=== PATIENT | male | born 1955 | race Caucasian/White ===

== ENCOUNTER 2020-01-05 11:38 | Observation (INO) | payer BC ==
[~2020-01-05] VITALS: Ht 177.8 cm; Wt 74.1 kg
[2020-01-05 12:06] LABS: BASO # 0.1 10^3/uL (0.0-0.2); BASO % 0.8 % (0.0-1.0); EOS # 0.3 10^3/uL (0.0-0.5); EOS % 4.6 % (0.0-3.0); HEMATOCRIT 46.6 % (42.0-52.0); HEMOGLOBIN 15.6 g/dl (13.5-17.5); LYMPH # 2.4 10^3/uL (1.5-5.0); LYMPH % 33.7 % (24.0-44.0); MEAN CORPUSCULAR HEMOGLOBIN 31.4 pg (27.0-33.0); MEAN CORPUSCULAR HGB CONC 33.5 g/dl (32.0-36.5); MEAN CORPUSCULAR VOLUME 93.8 fl (80.0-96.0); MONO # 0.7 10^3/uL (0.0-0.8); NEUTROPHILS # 3.6 10^3/uL (1.5-8.5); NEUTROPHILS % 50.5 % (36.0-66.0); PLATELET COUNT, AUTOMATED 226 10^3/uL (150-450); RED BLOOD COUNT 4.97 10^6/uL (4.30-6.10); WHITE BLOOD COUNT 7.1 10^3/uL (4.0-10.0)
--- NOTE | 2020-01-05 12:11 | REP ---
Head CT without contrast: History: Altered mental status. Comparison study: No comparison study. CT findings: Bone window settings demonstrate an intact bony calvarium. There is no evidence of skull fracture or incidental bony calvarial lesion. The visualized paranasal sinuses appear clear. No intraorbital abnormality is seen. On soft tissue window setting images; the lateral, third, and fourth ventricles are normal in size and position. Vega-white differentiation pattern is normal above and below the tentorium. There are is no evidence of intracranial hemorrhage. No mass, edema, infarction, or midline shift is seen. No extra-axial fluid collection is appreciated. Impression: Negative noncontrast head CT. Electronically Signed by Janes Silva MD 01/05/2020 12:03 P
--- NOTE | 2020-01-05 12:15 | REP ---
CHEST, SINGLE VIEW: Single view of the chest is performed. There is no acute infiltrate. However there is a nodular opacity projecting in the left lung base 2.2 cm in diameter. Heart is normal in size. Mediastinal silhouette is unremarkable. IMPRESSION: No infiltrate is seen. Left lung nodule 2.2 cm in diameter. Electronically Signed by Jairo Vega MD 01/05/2020 03:58 P
[2020-01-05 12:34] LABS: ALBUMIN 4.3 GM/DL (3.2-5.2); ALT/SGPT 21 U/L (12-78); BILIRUBIN,DIRECT 0.1 MG/DL (0.0-0.2); BILIRUBIN,TOTAL 0.4 MG/DL (0.2-1.0); BLOOD UREA NITROGEN 15 MG/DL (7-18); CALCIUM LEVEL 8.6 MG/DL (8.8-10.2); CARBON DIOXIDE LEVEL 29 MEQ/L (21-32); CHLORIDE LEVEL 105 MEQ/L (98-107); CK-MB VALUE MASS < 1.0 NG/ML (<3.6); CPK CREATINE PHOSPHOKINASE 139 U/L (39-308); CREATININE FOR GFR 1.03 MG/DL (0.70-1.30); ETHYL ALCOHOL (ETHANOL) < 0.003 % (0.000-0.010); GLOMERULAR FILTRATION RATE > 60.0 (>49); GLUCOSE, FASTING 105 MG/DL (70-100); MB/CK RELATIVE INDEX 0.72 (< OR =4); POTASSIUM SERUM 4.3 MEQ/L (3.5-5.1); SODIUM LEVEL 139 MEQ/L (136-145); THYROID STIMULATING HORMONE 0.974 uIU/ML (0.358-3.740); TOTAL PROTEIN 7.3 GM/DL (6.4-8.2); TROPONIN I < 0.02 NG/ML (< 0.10)
[2020-01-05] MEDS ORDERED: TADA5TAB PO (12:40)
[2020-01-05] MEDS ORDERED: TAMS1CAP17 PO (12:40)
[2020-01-05] MEDS ORDERED: ZOLP10TA2 PO (12:40)
[2020-01-05] MEDS ORDERED: ECOT81TA5 PO (12:46)
[2020-01-05] MEDS ORDERED: PRAV10TA4 PO (13:02)
[2020-01-05] MEDS ORDERED: MOM 30ML SUSPENSION UDC PO PRN (13:45)
[2020-01-05] MEDS ORDERED: ACETAMINOPHEN TAB 650MG DOSE (2X325MG) PO PRN (13:45)
[2020-01-05] MEDS ORDERED: MAALOX 30 ML SUSP *UDC PO PRN (13:45)
--- NOTE | 2020-01-05 13:49 | HPEPDOC ---
General Date of Admission 01/05/20 Date of Service: Jan 05, 2020 Chief Complaint The patient is a 64-year-old male admitted with a reason for visit of Neuro Sx. Source: Patient Exam Limitations: No limitations Timing/Duration: Other (since this morning) Severity: Moderate Associated Symptoms: Other (, confusion, loss of memory) History of Present Illness This is 64 years old white male with past medical history of hyperlipidemia, has not taken his statins/anti-hyperlipidemic meds since last 1 month. He came in with chief complaints of sudden onset of confusion which started at 10 AM and lasted for about 2 hours, confusion, was associated with partial loss of memory. He could remember some stuff, but he did not remember other like recent events. No seizures. No are no postictal state. No headache. No weakness. Sensory or motor. No weakness of cranial nerves, and was brought to ER where initially he was found, oriented 1 but later he became alert, oriented 3 with no symptoms. Home Medications Scheduled Aspirin (Ecotrin) 81 Mg Tablet.dr, 81 MG PO DAILY, (Reported) Pravastatin Sodium (Pravastatin Sodium) 10 Mg Tablet, 10 MG PO DAILY, (Reported) Tamsulosin Hcl (Tamsulosin HCl) 0.4 Mg Capsule, 0.4 MG PO DAILY, (Reported) Zolpidem Tartrate (Zolpidem Tartrate) 10 Mg Tablet, 10 MG PO QHS, (Reported) Scheduled PRN Tadalafil (Tadalafil) 5 Mg Tablet, 5 MG PO DAILY PRN for ERECTILE DYSFUNCTION, (Reported) Allergies Coded Allergies: No Known Allergies (Unverified , 01/05/20) Past Medical History Medical History Hyperlipidemia, BPH Family History Significant Family History: No pertinent family hx Social History * Smoker: Denies Alcohol: other (. Drinks about 2 drinks per day) Drugs: denies A-FIB/CHADSVASC A-FIB History Current/History of A-Fib/PAF?: No Review of Systems Constitutional: Denies: Chills, Fever, Malaise, Night Sweats, Weakness, Fatigue, Weight Loss, Lethargy, Other Eyes: Denies: Pain, Vision change, Conjunctivae inflammation, Eyelid inflammation, Redness, Other ENT: Denies: Head Aches, Ear Pain, Dysphagia, Sinus Congestion, Post Nasal Drip, Sore Throat, Epistaxis, Other Symptoms Skin: Denies: Rash, Lesions, Jaundice, Bruising, Itching, Dry, Breakdown, Nail Changes, Other Pulmonary: Denies: Dyspnea, Cough, Pleuritic Chest Pain, Other Symptoms Cardiovascular: Denies: Chest Pain, Palpitations, Orthopnea, Paroxysmal Noc. Dyspnea, Edema, Lt Headedness, Other Symptoms Gastrointestinal: Denies: Nausea, Vomiting, Abdominal Pain, Diarrhea, Constipation, Melena, Hematochezia, Other Symptoms Genitourinary: Denies: Dysuria, Frequency, Incontinence, Hematuria, Retention, Other Symptoms Hematologic: Denies: Bruising, Bleeding Excessively, Petecchia, Purpura, Enlarged Lymph Nodes, Other Hematologic Endocrine: Denies: Polydipsia, Polyphagia, Polyuria, Heat Intolerance, Cold Intolerance, Other Endocrine Sx Musculoskeletal: Denies: Neck Pain, Back Pain, Shoulder Pain, Arm Pain, Hand Pain, Leg Pain, Foot Pain, Joint Pain, Muscle Pain, Spasms, Other Symptoms Neurological: Reports: Other Symptoms (, confusion with loss of memory) Psych: Denies: Mood Normal, Anxiety, Depression, Memory Issues, Thoughts of Self Harm, Anger, Thoughts of Harming Other, Other Psych Physical Examination General Exam: Positive: Alert, Cooperative Eye Exam: Positive: PERRLA, Conjunctiva & lids normal ENT Exam: Positive: Atraumatic Neck Exam: Positive: Supple Chest Exam: Positive: Clear to auscultation, Normal air movement Heart Exam: Positive: Rate Normal, Normal S1, Normal S2 Abdomen Exam: Positive: Normal bowel sounds, Soft, Tenderness Extremity Exam: Positive: Normal pulses Skin Exam: Positive: Nl turgor and temperature Neuro Exam: Positive: Strength at 5/5 X4 ext Psych Exam: Positive: Mental status NL, Oriented x 3 Vital Signs Vital Signs Date Time Temp Pulse Resp B/P (MAP) Pulse Ox O2 Delivery O2 Flow Rate FiO2 01/05/20 11:54 01/05/20 11:38 96.6 68 18 99 Room Air Laboratory Data Labs 24H Laboratory Tests 2 01/05/20 11:41: Immature Granulocyte % (Auto) 0.4, Neutrophils (%) (Auto) 50.5, Lymphocytes (%) (Auto) 33.7, Monocytes (%) (Auto) 10.0H, Eosinophils (%) (Auto) 4.6H, Basophils (%) (Auto) 0.8, Neutrophils # (Auto) 3.6, Lymphocytes # (Auto) 2.4, Monocytes # (Auto) 0.7, Eosinophils # (Auto) 0.3, Basophils # (Auto) 0.1, Nucleated Red Blood Cells % (auto) 0.0, Anion Gap 5L, Glomerular Filtration Rate > 60.0, Calcium Level 8.6L, Total Bilirubin 0.4, Direct Bilirubin 0.1, Aspartate Amino Transf (AST/SGOT) 21, Alanine Aminotransferase (ALT/SGPT) 21, Alkaline P hosphatase 67, Ammonia 17, Total Creatine Kinase 139, Creatine Kinase MB < 1.0, Creatine Kinase MB Relative Index 0.72, Troponin I < 0.02, Total Protein 7.3, Albumin 4.3, Albumin/Globulin Ratio 1.43, Thyroid Stimulating Hormone (TSH) 0.974, Ethyl Alcohol Level < 0.003 01/05/20 12:10: Bedside Glucose (Misc Panel) 100 CBC/BMP Laboratory Tests 01/05/20 11:41 Problems (1) TGA (transient global amnesia) Status: Acute Problem Text: 64 years old white male with past medical history of hyperli pidemia, on no meds at present, double of sudden onset of global amnesia for about 2 hours. Patient is presently asymptomatic CT of the head is negative. Chest x-ray shows left lung. The nodule 2.2 cm in diameter CBC, CMP within normal range , Alcohol less than 0.003 Urine toxicity screen pending Admit patient [facility] floor with telemetry Saline lock Will start him on higher dose of aspirin 325 mg by mouth daily starting dose today Will start him on Crestor 5 mg by mouth daily as a starting dose MRI of the brain without contrast Bilateral carotid Doppler Echocardiogram LDL and hemoglobin A1c Neurology consult: Dr. Ranulfo Kim discussed. He will see patient later Will continue home meds, once available DVT prophylaxis with Lovenox Diet regular Activity as tolerated (2) Hyperlipidemia Status: Chronic Problem Text: As per patient, he is on no medications since last 1 month Patient is from [place]. He does not have a PCP has been started on Crestor 5 mg by mouth daily Plan / VTE VTE Prophylaxis Ordered?: Yes SHAILA CAVANAUGH MD Jan 05, 2020 13:49
[2020-01-05] MEDS ORDERED: ASPIRIN 81 MG ENTERIC TAB PO SCH (14:00)
[2020-01-05 14:30] LABS: CHOLESTEROL LEVEL 167 MG/DL (<200); HDL CHOLESTEROL 41 MG/DL (>40); LDL CHOLESTEROL 102 MG/DL (<100); TRIGLYCERIDES LEVEL 120 MG/DL (<150)
[2020-01-05 14:38] LABS: HEMOGLOBIN A1c 5.8 %
[2020-01-05 14:40] LABS: AMPHETAMINES LEVEL URINE NEGATIVE (NEGATIVE); BARBITURATES URINE NEGATIVE (NEGATIVE); BENZODIAZEPINES URINE NEGATIVE (NEGATIVE); CANNABINOIDS URINE NEGATIVE (NEGATIVE); COCAINE METABOLITE URINE NEGATIVE (NEGATIVE); METHADONE URINE NEGATIVE (NEGATIVE); OPIATES URINE POSITIVE (NEGATIVE); PHENCYCLIDINE URINE NEGATIVE (NEGATIVE)
--- NOTE | 2020-01-05 15:40 | REP ---
Duplex carotid sonography: History: TIA. Findings: Antegrade flow was observed in both vertebral arteries. Right carotid: The right common carotid artery shows minimal soft plaquing. There is soft plaquing in the bulb and proximal ICA on two-dimensional scanning on the right side. Color flow and spectral Doppler interrogation are unremarkable. Velocity chart right carotid: CCA PSV 95 cm/s ICA PSV 58 cm/s ICA EDV 19 cm/s ECA PSV 70 cm/s Right ICA/CCA ratio normal 0.6. Impression: Less than 50% category narrowing in the right ICA by Doppler velocity criteria. Left carotid: The left common carotid artery shows mild soft plaquing. There is mild soft plaquing in the bulb and proximal ICA on the left side as well. Color flow and spectral Doppler interrogation are unremarkable on the left. Velocity chart left carotid: CCA PSV 127 cm/s ICA PSV 61 cm/s ICA EDV 24 cm/s ECA PSV 60 cm/s Left ICA/CCA ratio normal 0.5. Impression: Less than 50% category narrowing in the left ICA by Doppler velocity criteria. Electronically Signed by Janes Silva MD 01/05/2020 03:54 P
--- NOTE | 2020-01-05 15:45 | REP ---
MR angiography the brain without contrast: History: CVA. No comparison study. Technique: 3-D [id number] MR angiography of the brain is acquired in the usual fashion and maximal intensity projection images were generated in rotational format about the vertical and horizontal axes. In addition, source axial T1-weighted images are viewed in cine mode. MR angiographic findings: The distal vertebral arteries are patent and right dominant. Basilar artery is a little tortuous but widely patent. The posterior cerebral and superior cerebellar vessels are normal and symmetric. The distal internal carotid arteries are unremarkable. Anterior and middle cerebral arteries appear intact. There is no visible jhaveri aneurysm or arteriovenous malformation. Impression: Unremarkable MR angiography the brain. Electronically Signed by Janes Silva MD 01/05/2020 03:07 P
--- NOTE | 2020-01-05 15:45 | REP ---
MRI brain without contrast: History: CVA. . Comparison study: Comparison brain CT earlier this date. Technique: Axial and sagittal imaging planes are utilized for T1 and T2-weighted scans. Sequences include spin-echo, fast spin echo, FLAIR, and diffusion weighted sequences. MRI findings: No bony calvarial lesion is seen. Craniocervical junction and upper cervical cord are normal in appearance. There is no MR evidence of significant paranasal sinus disease. No intraorbital abnormality is seen. The lateral, third, and fourth ventricles are normal in size and position. Vega-white differentiation pattern is intact above and below the tentorium. There is no evidence of intracranial hemorrhage. No mass, infarction, extra-axial fluid collection or midline shift is seen. Diffusion weighted scans show no evidence of restricted diffusion to suggest acute ischemia. There are minimal small vessel atherosclerotic changes in the periventricular and subcortical white matter. Impression: Negative noncontrast brain MRI study. No acute intracranial lesion. Electronically Signed by Janes Silva MD 01/05/2020 03:10 P
[2020-01-05 16:00] VITALS: BP 146/86
[2020-01-05] MEDS ORDERED: DOCUSATE SODIUM 100 MG CAP PO SCH (21:00)
--- NOTE | 2020-01-05 21:56 | ECGEPIP ---
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
[2020-01-05 22:00] VITALS: BP 123/74
[2020-01-06 06:00] VITALS: BP 103/61
[2020-01-06 07:20] LABS: HEMATOCRIT 46.2 % (42.0-52.0); MEAN CORPUSCULAR HEMOGLOBIN 30.7 pg (27.0-33.0); MEAN CORPUSCULAR HGB CONC 32.5 g/dl (32.0-36.5); MEAN CORPUSCULAR VOLUME 94.5 fl (80.0-96.0); PLATELET COUNT, AUTOMATED 214 10^3/uL (150-450); RED BLOOD COUNT 4.89 10^6/uL (4.30-6.10); WHITE BLOOD COUNT 5.7 10^3/uL (4.0-10.0)
[2020-01-06 07:46] LABS: ALBUMIN 3.9 GM/DL (3.2-5.2); ALT/SGPT 17 U/L (12-78); BILIRUBIN,TOTAL 0.5 MG/DL (0.2-1.0); BLOOD UREA NITROGEN 15 MG/DL (7-18); CALCIUM LEVEL 8.9 MG/DL (8.8-10.2); CARBON DIOXIDE LEVEL 30 MEQ/L (21-32); CHLORIDE LEVEL 104 MEQ/L (98-107); CREATININE FOR GFR 1.08 MG/DL (0.70-1.30); GLOMERULAR FILTRATION RATE > 60.0 (>49); GLUCOSE, FASTING 108 MG/DL (70-100); POTASSIUM SERUM 4.1 MEQ/L (3.5-5.1); SODIUM LEVEL 140 MEQ/L (136-145); TOTAL PROTEIN 6.4 GM/DL (6.4-8.2)
[2020-01-06] MEDS ORDERED: ASPI-1 PO (08:15)
[2020-01-06] MEDS ORDERED: ROSUVASTATIN 10 MG TAB (CRESTOR) PO SCH (09:00)
[2020-01-06] MEDS ORDERED: ENOXAPARIN 40 MG/0.4 ML SYRINGE (J1650) SC SCH (09:00)
[2020-01-06] MEDS ORDERED: ASPIRIN 325 MG TAB PO SCH (09:00)
--- NOTE | 2020-01-06 10:36 | CR ---
DATE OF CONSULTATION: 01/05/2020 REFERRING PHYSICIAN: Dr. Sawyer Mireles REASON FOR CONSULTATION: Altered mental status. HISTORY OF PRESENT ILLNESS: Guanakito Carter is a 64-year-old man with a history of dyslipidemia who has not taken his Repatha for the last 1 month and ran out of aspirin for the last couple of days. He lives in [place], [place] and came here for a . He works in this region as well. He woke up around 7:00 a.m.. He was alone in his house here. He went to work around 9:00 a.m. and could not put his thoughts together. He had driven to work in the morning and had no trouble while driving. He spoke to a couple of people and did not feel right. He was in a meeting but tried not to talk as things did not make sense. He finally told them to stop the meeting as he was not feeling well. His [employer] drove him to [facility]. He is not sure if they noted anything wrong with his speech or memory. He felt his memory was off. He can remember parts of his car ride to emergency department. He can remember emergency stay for a couple of hours. His symptoms lasted for 2 or 3 hours and they went away. He does not think that there was anything wrong with his speech, arms, legs balance, vision. He later had a headache, which he thinks is because he did not eat much in the morning. He denies any neck or back pain. He denies seizures, dysphagia, dysarthria, diplopia, falls or loss of consciousness. He denies any head injuries. His symptoms resolved on their own in 2-3 hours. According to admitting physician, he was oriented times one when he came to emergency department and by the time of admission, he was oriented times three. PAST MEDICAL HISTORY: Prostate enlargement, dyslipidemia, carotid artery bilateral less than 15% stenosis, which will be followed by his doctor in [place], [place]. ALLERGIES: None. HOME MEDICATIONS: - aspirin 81 mg by mouth daily, but he ran out a couple of days ago - Repatha twice a month, but he missed doses for the last 1 month - Flomax 0.4 mg by mouth daily - Ambien 10 mg by mouth - Cialis 5 mg by mouth daily as needed FAMILY HISTORY: Noncontributory. SOCIAL HISTORY: He drinks two alcoholic beverages per day. He denies smoking or illicit drugs. REVIEW OF SYSTEMS: All systems were reviewed and found to be noncontributory except as mentioned in the history of present illness. PHYSICAL EXAMINATION: Temperature 97.4, pulse 60, respiratory rate 16, blood pressure 146/86, 99% saturation on room air. Heart: Regular rate and rhythm. Lungs: Clear to auscultation. Abdomen: Soft, nontender, nondistended. No pedal edema. No musculoskeletal abnormalities. No rash. No signs of meningeal irritation. The patient is awake, alert, oriented to place, person and time. Normal speech, comprehension and repetition. Extraocular muscles are intact. No facial weakness. Tongue and uvula are midline. Visual kumar are full to confrontation. No nystagmus. 5/5 strength in all four extremities. Deep tendon reflexes are 2+ throughout. Normal sensation throughout. No dysmetria, tremor, signs of meningeal irritation. Plantars are downgoing. Gait is normal. No rash or musculoskeletal abnormalities. DIAGNOSTIC STUDIES: MRI and MRA of brain were unremarkable. Telemetry so far showed normal sinus rhythm. Carotid ultrasound showed less than 50% bilateral carotid artery stenosis. ASSESSMENT: 1. Suspected transient global amnesia. 2. Transient ischemic attack (TIA) is in differential diagnosis. 3. Less than 50% bilateral carotid artery stenosis and dyslipidemia. PLAN: 1. Blood tests to look for causes of coagulopathy and vasculopathy. 2. Echocardiogram. 3. Aspirin 81 mg by mouth daily, and the patient will continue Repatha twice a month in [place], [place]. 4. He will follow up with his primary care physician in [place], [place] when he goes back.
--- NOTE | 2020-01-06 11:46 | DS.PDOC ---
Discharge Summary General Date of Admission Jan 05, 2020 at 11:40 Date of Discharge 01/06/20 Discharge Summary PROCEDURES PERFORMED DURING STAY: None. ADMITTING DIAGNOSES: 1. Globus transient amnesia. DISCHARGE DIAGNOSES: 1. Global transient amnesia, hyperlipidemia, history of smoking, possible opioid abuse. COMPLICATIONS/CHIEF COMPLAINT: Transient Confusion. HISTORY OF PRESENT ILLNESS: his is 64 years old white male with past medical history of hyperlipidemia, has not taken his statins/anti-hyperlipidemic meds since last 1 month. He came in with chief complaints of sudden onset of confusion which started at 10 AM and lasted for about 2 hours, confusion, was associated with partial loss of memory. He could remember some stuff, but he did not remember other like recent events. No seizures. No are no postictal state. No headache. No weakness. Sensory or motor. No weakness of cranial nerves, and was brought to ER where initially he was found, oriented 1 but later he became alert, oriented 3 with no symptoms.. HOSPITAL COURSE: Patient was admitted with the diagnosis of transient global amn esia. I discussed case with Dr. Collazo who is seen the patient on the floor. Patient's MRI brain, MRA of brain, carotid Dopplers were essentially within normal limits within the left carotid artery stenosis less than 50%. Patient was started on aspirin and statins as he has not taken his meds since last 1 month. Patient denies any history of drug abuse, but opiates are positive on the drug screen. Patient was scheduled for echocardiogram, but he decided to sign out AMA leave, all risks were explained to him, but he decided to leave AGAINST MEDICAL ADVICE. DISCHARGE MEDICATIONS: Please see below. ALLERGIES: Please see below. PHYSICAL EXAMINATION ON DISCHARGE: Sign out AMA LABORATORY DATA: Please see below. IMAGING: MRI, MRA brain within normal range PROGNOSIS: Sign out AMA ACTIVITY: As tolerated. DIET: As tolerated DISCHARGE PLAN: AMA DISPOSITION: Against Medical Advice. DISCHARGE INSTRUCTIONS: 1. He signed out AMA. ITEMS TO FOLLOWUP ON ON OUTPATIENT: 1. Follow with PCP as soon as possible. DISCHARGE CONDITION: Stable. TIME SPENT ON DISCHARGE: 21 minutes. Vital Signs/I&Os Vital Signs Date Time Temp Pulse Resp B/P (MAP) Pulse Ox O2 Delivery O2 Flow Rate FiO2 01/06/20 06:00 98.0 69 18 103/61 (75) 100 Room Air I&O- Last 24 Hours up to 6 AM 01/06/20 06:00 Intake Total 300 ml Output Total 0 ml Balance 300 ml Laboratory Data Labs 24H Laboratory Tests 2 01/05/20 12:10: Bedside Glucose (Misc Panel) 100 01/06/20 06:57: Nucleated Red Blood Cells % (auto) 0.0, Anion Gap 6L, Glomerular Filtration Rate > 60.0, Calcium Level 8.9, Magnesium Level 2.0, Total Bilirubin 0.5, Aspartate Amino Transf (AST/SGOT) 17, Alanine Aminotransferase (ALT/SGPT) 17, Alkaline Phosphatase 50, Total Protein 6.4, Albumin 3.9, Albumin/Globulin Ratio 1.56 CBC/BMP Laboratory Tests 01/06/20 06:57 FSBS Laboratory Tests Test 01/05/20 12:10 Range/Units Bedside Glucose (Misc Panel) 100 80-115 MG/DL Discharge Medications Scheduled Aspirin (Aspirin) 325 Mg Tablet, 325 MG PO DAILY Pravastatin Sodium (Pravastatin Sodium) 10 Mg Tablet, 10 MG PO DAILY, (Reported) Tamsulosin Hcl (Tamsulosin HCl) 0.4 Mg Capsule, 0.4 MG PO DAILY, (Reported) Zolpidem Tartrate (Zolpidem Tartrate) 10 Mg Tablet, 10 MG PO QHS, (Reported) Scheduled PRN Tadalafil (Tadalafil) 5 Mg Tablet, 5 MG PO DAILY PRN for ERECTILE DYSFUNCTION, (Reported) Allergies Coded Allergies: No Known Allergies (Unverified , 01/05/20) SHAILA CAVANAUGH MD Jan 06, 2020 11:45
== END 2020-01-06 08:19 | disposition left against medical advice (07) ==
LOC: M ED 11:39 → M ED INP 11:40 → ENRESERVDT 14:17 → ENRESERVTM 14:17 → M MSPAV 15:34
PROVIDERS: ADMIT Internal Medicine; ATTEND Internal Medicine
DX: G45.4 Transient global amnesia (principal); Z53.21 Procedure and treatment not carried out due to patient leaving prior to being seen by health care provider; E78.49 Other hyperlipidemia; F11.99 Opioid use, unspecified with unspecified opioid-induced disorder; N40.0 Benign prostatic hyperplasia without lower urinary tract symptoms; Z79.82 Long term (current) use of aspirin; Z79.899 Other long term (current) drug therapy; Z87.891 Personal history of nicotine dependence
CPT/HCPCS: 36415; 70450; 70544; 70551; 71045; 80048; 80053; 80061; 80076; 80307; 81001; 81240; 82140; 82550; 82553; 83036; 83090; 83735; 84443; 84484; 85025; 85027; 85240; 85300; 85302; 85305; 85306; 85730; 86021; 86038; 86147; 86225; 86235; 86256; 93005; 93041; 93880; 94760; 99285; G0480

== ENCOUNTER → 2020-05-13 | Outpatient (REF) | payer BC ==
[~2020-05-13] MED LIST: ASPI-1 PO; ECOT81TA5 PO; PRAV10TA4 PO; TADA5TAB PO; TAMS1CAP17 PO; ZOLP10TA2 PO
== END ==
LOC: M WUC 20:36
PROVIDERS: ATTEND Physician Assistant
DX: Z20.828 Contact with and (suspected) exposure to other viral communicable diseases (principal)

== ENCOUNTER 2025-08-16 12:24 | Emergency (ER) | payer BC, MEDICARE ==
[~2025-08-16] VITALS: Ht 177.8 cm; Wt 72.2 kg
[~2025-08-16 12:24] MED LIST changes: +PRAV10TA PO; -PRAV10TA4 PO; -TADA5TAB PO; +TADA5TAB2 PO; +ZOLP10TA11 PO; -ZOLP10TA2 PO
[2025-08-16] MEDS ORDERED: REPA140I2 (12:52)
[2025-08-16] MEDS ORDERED: OMEP-173 PO (12:52)
[2025-08-16] MEDS ORDERED: ASPI81CH33 PO (12:52)
[2025-08-16 13:02] LABS: BASO # 0.1 10^3/uL (0.0-0.2); BASO % 0.6 % (0.0-1.0); EOS # 0.1 10^3/uL (0.0-0.5); EOS % 1.4 % (0.0-3.0); LYMPH # 2.4 10^3/uL (1.5-5.0); LYMPH % 29.8 % (24.0-44.0); MONO # 0.5 10^3/uL (0.0-0.8); MONO % 6.7 % (2.0-8.0); NEUTROPHILS # 4.9 10^3/uL (1.5-8.5); NEUTROPHILS % 61.3 % (36.0-66.0); PLATELET COUNT, AUTOMATED 254 10^3/uL (150-450)
[2025-08-16 13:19] LABS: INR 0.91
[2025-08-16 13:29] LABS: ALT/SGPT 14.0 U/L (7.0-40); AST/SGOT 31.0 U/L (<34); CALCIUM LEVEL 9.2 MG/DL (8.3-10.6); CARBON DIOXIDE LEVEL 26.0 MMOL/L (20-31); CHLORIDE LEVEL 105.0 MMOL/L (98-107); CREATININE FOR GFR 0.98 MG/DL (0.70-1.30); GLOMERULAR FILTRATION RATE 83.0 (>42); POTASSIUM SERUM 4.3 MMOL/L (3.5-5.1); SODIUM LEVEL 137.0 MMOL/L (136-145)
[2025-08-16] MEDS: MORPHINE 4 MG/ML 1 ML VIAL IV PRN (14:00)
[2025-08-16] MEDS: AMPICILLIN SOD/SULBACTAM SOD 3 GM in DEXTROSE 5% (D5W) MINI-BAG PLU 100 ML IV ONE (14:02)
[2025-08-16] MEDS: MORPHINE 2 MG/ML 1 ML VIAL IV PRN (15:27)
[2025-08-16 15:39] VITALS: BP 173/81; TEMP 98.6; O2SAT 100
== END 2025-08-16 15:41 | disposition short-term general hospital (02) ==
LOC: M ED 14:23
DX: S02.66XB Fracture of symphysis of mandible, initial encounter for open fracture (principal); S02.40CA Maxillary fracture, right side, initial encounter for closed fracture; S01.01XA Laceration without foreign body of scalp, initial encounter; S00.03XA Contusion of scalp, initial encounter; V94.0XXA Hitting object or bottom of body of water due to fall from watercraft, initial encounter; E78.5 Hyperlipidemia, unspecified; M85.88 Other specified disorders of bone density and structure, other site; Z86.79 Personal history of other diseases of the circulatory system; Z79.82 Long term (current) use of aspirin; Z79.899 Other long term (current) drug therapy; Y93.19 Activity, other involving water and watercraft; Y99.9 Unspecified external cause status; Y92.89 Other specified places as the place of occurrence of the external cause
CPT/HCPCS: 70450; 70486; 72125; 73090; 80048; 80076; 83605; 85025; 85610; 85730; 86850; 86900; 86901; 93041; 94760; 96365; 96375; 96376; 99285; J0295